=== PATIENT | male | born 1990 | race Caucasian/White ===

== ENCOUNTER 2025-03-01 01:22 | Emergency (ER) | payer MEDICAID ==
[~2025-03-01] VITALS: Ht 165.1 cm; Wt 63.6 kg
[2025-03-01 01:45] VITALS: TEMP 98.1
[2025-03-01 03:12] VITALS: BP 138/87; PULSE 91; RESP 18; O2SAT 100
[2025-03-01] MEDS: IBUPROFEN 600 MG TABLET PO ONE (03:37)
[2025-03-01] MEDS: AMOX TR/POT CLAV 875 MG/125 MG TABLET PO ONE (03:37)
[2025-03-01] MEDS ORDERED: AMOX-457 PO (04:07)
== END 2025-03-01 04:27 | disposition home or self-care (01) ==
LOC: EMS 01:37
DX: S01.511A Laceration without foreign body of lip, initial encounter (principal); X58.XXXA Exposure to other specified factors, initial encounter; Y93.89 Activity, other specified; Y92.89 Other specified places as the place of occurrence of the external cause; Y99.8 Other external cause status
CPT/HCPCS: 12011; 99283